=== PATIENT | female | born 1945 | race Caucasian/White ===

== ENCOUNTER 2017-05-28 12:24 | Outpatient (CLI) | payer MEDICARE | END 2017-05-28 12:25 | disposition critical access hospital (66) | LOC: EMS 12:24 | PROVIDERS: ATTEND Surgery | DX: R10.9 Unspecified abdominal pain (principal) | CPT/HCPCS: A0425; A0427 ==

== ENCOUNTER 2017-05-28 12:41 | Emergency (ER) | payer MEDICARE ==
[2017-05-28 13:28] LABS: BASOPHILS % (AUTO) 0.6 %; EOSINOPHILS # (AUTO) 0.1 10^3/uL (0.0-0.7); HCT - HEMATOCRIT 38.3 % (37.0-47.0); HGB - HEMOGLOBIN 13.3 g/dL (12.0-16.0); LYMPHOCYTES # (AUTO) 1.3 10^3/uL (1.5-3.5); LYMPHOCYTES % (AUTO) 23.4 %; MEAN CORPUSCULAR HEMOGLOBIN 30.2 pg (27.0-31.0); MEAN CORPUSCULAR HGB CONC 34.6 g/dL (32.0-36.0); MEAN CORPUSCULAR VOLUME 87.2 fL (81.0-99.0); MEAN PLATELET VOLUME 7.2 fL (7.9-10.8); MONOCYTES # (AUTO) 0.4 10^3/uL (0.0-1.0); MONOCYTES % (AUTO) 6.7 %; NEUTROPHILS # (AUTO) 3.9 10^3/uL (1.5-6.6); NEUTROPHILS % (AUTO) 68.3 %; RED CELL DISTRIBUTION WIDTH 12.8 % (12.0-15.0); UNCORRECTED WHITE BLOOD COUNT 5.8 x10^3/uL; WHITE BLOOD COUNT 5.8 x10^3/uL (4.8-10.8)
[2017-05-28] MEDS ORDERED: ONDANSETRON 4 MG/2 ML VIAL IVP STA (13:30)
[2017-05-28 13:39] LABS: ALBUMIN/GLOBULIN RATIO 1.6 (1.0-2.2); BILIRUBIN,TOTAL 0.5 mg/dL (0.2-1.0); CALCIUM 9.4 mg/dL (8.5-10.3); CREATININE 0.9 mg/dL (0.4-1.0); POTASSIUM 3.5 mmol/L (3.5-5.0); TOTAL PROTEIN 6.3 g/dL (6.7-8.2)
--- NOTE | 2017-05-28 13:40 | ED Physician Documentation ---
History of Present Illness - Stated complaint Stated Complaint: ABD PX - Chief complaint Chief Complaint: Abd Pain - Additonal information Additional information: hx frrom pt 71 f hx int upper abd discomfort and also alt constipation and diarrhea but today severe upper and left sided abd pain black stools for several days nauseated no vomit or diarrhea pshx = hyst Review of Systems Constitutional: denies: Fever, Chills Cardiac: denies: Chest pain / pressure Respiratory: denies: Dyspnea GI: reports: Abdominal Pain, Nausea, Bloody / black stool. denies: Constipation , Diarrhea : denies: Dysuria Musculoskeletal: reports: Back pain (low) Endocrine: denies: Easy bruising / bleeding Immunocompromised: denies: Immunocompromised PD PAST MEDICAL HISTORY - Past Medical History Cardiovascular: Hypertension, High cholesterol - Past Surgical History /[employer]: Hysterectomy - Present Medications Home Medications: Ambulatory Orders Medication Instructions Recorded Confirmed Cholecalciferol (Vitamin D3) 2,000 units PO DAILY 05/28/17 05/28/17 [Vitamin D3] Lidocaine Viscous 2% [Xylocaine 5 ml .ROUTE Q6H PRN #60 ml 05/28/17 Viscous 2%] Omeprazole [PriLOSEC] 10 mg PO DAILY 05/28/17 05/28/17 Sucralfate 1 gm PO ACHS #120 tablet 05/28/17 raNITIdine [Zantac] 150 mg PO DAILY #30 tablet 05/28/17 - Allergies Allergies/Adverse Reactions: Allergies Allergy/AdvReac Type Severity Reaction Status Date / Time morphine Allergy Nausea Verified 05/28/17 12:56 - Social History Does the pt smoke?: No Smoking Status: Former smoker ETOH Use: Wine Does the pt have substance abuse?: No - Immunizations Immunizations are current?: Yes PD ED PE NORMAL - Vitals Vital signs reviewed: Yes - General General: Alert and oriented X 3 - Neck Neck: Supple, no meningeal sign - Cardiac Cardiac: RRR - Respiratory Respiratory: No respiratory distress, Clear bilaterally - Abdomen Abdomen: Soft, Other (mod TTP with vol guarding upper and left abd) - Female Female : Deferred (hyst) - Rectal Rectal: Other (no mass, dark stool, occult blood neg, QC passed) Results - Vitals Vitals: Vital Signs - 24 hr 05/28/17 05/28/17 12:48 13:56 Temperature 36.6 C Heart Rate 65 80 Respiratory 18 16 Rate Blood Pressure 158/93 H O2 Saturation 99 96 Oxygen O2 Source Room air - Labs Labs: Laboratory Tests 05/28/17 05/28/17 05/28/17 13:19 13:19 14:00 WBC 5.8 RBC 4.40 Hgb 13.3 Hct 38.3 MCV 87.2 MCH 30.2 MCHC 34.6 RDW 12.8 Plt Count 281 MPV 7.2 L Neut # 3.9 Lymph # 1.3 L [place] # 0.4 Eos # 0.1 Baso # 0.0 Absolute Nucleated RBC 0.00 Nucleated RBCs 0.0 Sodium 137 Potassium 3.5 Chloride 103 Carbon Dioxide 26 Anion Gap 8.0 BUN 15 Creatinine 0.9 Estimated GFR (MDRD) 62 L Glucose 116 H Calcium 9.4 Total Bilirubin 0.5 AST 23 ALT 24 Alkaline Phosphatase 47 Total Protein 6.3 L Albumin 3.9 Globulin 2.4 Albumin/Globulin Ratio 1.6 Lipase 28 Urine Color YELLOW Urine Clarity CLEAR Urine pH 8.0 H Ur Specific [place] 1.015 Urine Protein NEGATIVE Urine Glucose (UA) NEGATIVE Urine Ketones NEGATIVE Urine Occult Blood NEGATIVE Urine Nitrite NEGATIVE Urine Bilirubin NEGATIVE Urine Urobilinogen 0.2 (NORMAL) Ur Leukocyte Esterase NEGATIVE Ur Microscopic Review NOT INDICATED Urine Culture Comments NOT INDICATED - Rads (name of study) CTA ABD PELVIS Radiology: See rad report PD MEDICAL DECISION MAKING - ED course ED course: nl labs and CTA pain mostly RUQ hx GERd tried pepcid GI cocktail and carafate with good improvement will dc c referral for scope Departure - Departure Disposition: 01 Home, Self Care Clinical Impression: Abdominal pain Qualifiers: Abdominal location: left upper quadrant Qualified Code(s): R10.12 - Left upper quadrant pain Condition: Good Instructions: Abdominal Pain, ED PUD Vs Gastritis Follow-Up: Good Gamez MD [Provider Admit Priv/Credential] - Prescriptions: Sucralfate 1 gm PO ACHS #120 tablet Lidocaine Viscous 2% [Xylocaine Viscous 2%] 5 ml .ROUTE Q6H PRN #60 ml PRN Reason: stomach pain raNITIdine [Zantac] 150 mg PO DAILY #30 tablet Comments: All of the tests today came back fine. The urine showed no infection or blood to suggest a kidney stone The blood work including kidney liver and pancreas function was fine. The CT scan did not show any gallstones or kidney stones, no pancreatitis, no aneurysm or tearing of the aorta or other major blood vessels, no bowel infection/perforation/obstruction, no internal bleeding or free fluid I am not sure what is causing the pain but given the location I suspect gastritis or an ulcer Given the extensive and reassuring workup, I do not think you need surgery or admission or antibiotics. I think it is safe for you to go home on ulcer medications and to follow up with the surgeons for a scope of your stomach You can try the ulcer medications I prescribed. I do not recommend any strong pain killers because I do not want to mask changing or worsening symptoms And please get your blood pressure rechecked - it was high today
[2017-05-28] MEDS: HYDROmorphone 1 MG/ML SYRINGE IVP STA ×2 (13:47→14:02)
[2017-05-28 14:13] LABS: BILIRUBIN,URINE NEGATIVE (NEGATIVE)
[2017-05-28 14:15] LABS: UA CHARGE (STRIP ONLY) YES; UR CULTURE IF IND NOT INDICATED
[2017-05-28] MEDS ORDERED: IOPAMIDOL-300 100 ML VIAL IVP ONE (14:28)
--- NOTE | 2017-05-28 15:24 | CT Preliminary Report ---
Exam: CT Abdomen/Pelvis Angio IMPRESSION: 1. Minimal atherosclerotic plaque. No stenosis. Celiac axis, superior and inferior mesenteric arterie s and renal arteries appear patent. 2. 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 Dilatation of the com mon hepatic artery 9 mm. Normal contrast filling. No dissection. 3. Hysterectomy. 4. An etiology for abdominal pain identified. [facility] SITE ID: [id number]
--- NOTE | 2017-05-28 15:27 | CT Report ---
EXAM: CT ANGIOGRAM ABDOMEN AND PELVIS WITH CONTRAST EXAM DATE: 05/28/2017 02:36 PM. CLINICAL HISTORY: Severe abd pain. Nausea and burning feeling in the lower abdomen since this morning . COMPARISONS: None. TECHNIQUE: Routine helical CT angiogram imaging was performed through the abdomen and pelvis in the a rterial phase. IV contrast: 100 cc [id number]. Enteric contrast: No. Reconstructions: Coronal, sagitt al, and 3D MIP reconstructions. In accordance with CT protocol optimization, one or more of the following dose reduction techniques w ere utilized for this exam: automated exposure control, adjustment of mA and/or KV based on patient s ize, or use of iterative reconstructive technique. FINDINGS: Vasculature: Scattered small foci of calcified plaque are seen within the normal caliber abdominal ao rta. No evidence of aortic or iliac aneurysm. Slight prominence of the right common iliac artery familia uring up to 1.2 cm. There is dilatation of the celiac axis up to 1 cm in diameter. Normal contrast fi lling of the celiac axis, superior and inferior mesenteric arteries as well as the bilateral renal ar teries. Tiny calcified plaque at the right renal artery origin without appreciable narrowing. Tiny fo ci of plaque at the internal iliac arteries. No aortic, iliac or femoral artery stenosis within the f [id number]. Lung Bases: Well-aerated. No pleural or pericardial effusion. Abdominal Solid Organs: The liver, spleen, pancreas, adrenal glands and kidneys demonstrate normal ar terial phase appearance. Gallbladder and bile ducts: Unremarkable. Peritoneal Cavity: Normal. No free fluid, free air, or acute inflammatory process. No bowel obstructi on. Normal appendix. Pelvic Organs: Hysterectomy. Urinary bladder is largely decompressed. No pathologic lymphadenopathy. Bones: Moderate disk height loss and small osteophytes at L4-L5. No acute fracture. No destructive connie ne lesions. Other: None. IMPRESSION: 1. Minimal atherosclerotic plaque. No stenosis. Celiac axis, superior and inferior mesenteric arterie s and renal arteries appear patent. 2. 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 Dilatation of the com mon hepatic artery 9 mm. Normal contrast filling. No dissection. 3. Hysterectomy. 4. An etiology for abdominal pain identified. [facility] Referring Provider Line: [phone] SITE ID: [id number]
[2017-05-28] MEDS ORDERED: LIDOCAINE VISCOUS 2% 15 ML UDC MM STA (15:44)
[2017-05-28] MEDS ORDERED: SUCRALFATE 1 GM/10 ML UDC PO STA (15:44)
[2017-05-28] MEDS ORDERED: FAMOTIDINE 20 MG/50 ML 50 ML IV ONE ×2 (15:44→15:57)
[2017-05-28] MEDS ORDERED: MAG HYDROX/AL HYDROX/SIMETH 30 ML UDC PO STA (15:44)
[2017-05-28] MEDS ORDERED: SUCRALFATE 1 GM/10 ML UDC ONE (15:57)
[2017-05-28] MEDS ORDERED: MAG HYDROX/AL HYDROX/SIMETH 30 ML UDC ONE (15:58)
[2017-05-28] MEDS ORDERED: LIDOCAINE VISCOUS 2% 15 ML UDC MM ONE (15:58)
[2017-05-28 17:24] VITALS: BP 135/84
== END 2017-05-28 17:30 | disposition home or self-care (01) ==
LOC: EDUNIT# → EDBD → ED 12:41 → SUPCPDRO 12:41 → ED 17:30
DX: R10.12 Left upper quadrant pain (principal); I10 Essential (primary) hypertension; Z87.891 Personal history of nicotine dependence
CPT/HCPCS: 36415; 74174; 80053; 81003; 83690; 85025; 96365; 96375; 99284; A9270; J1170; Q9967; 81001; 87086

== ENCOUNTER 2024-01-15 10:51 | Outpatient (CLI) | payer MEDICARE ==
--- NOTE | 2024-01-15 11:29 | XRAY Report ---
PROCEDURE: Hip w/Pelvis 2-3V LT INDICATIONS: HIP PAIN, SCIATICA TECHNIQUE: 2 views of the hip were acquired. COMPARISON: None. FINDINGS: Bones: No fractures or dislocations. Mild degenerative changes of bilateral hips. Degenerative rowell es of the lower lumbar spine. No suspicious bony lesions. Soft tissues: No suspicious soft tissue calcifications or masses. IMPRESSION: No acute bony abnormality. Mild degenerative changes of the bilateral hips. Reviewed by: Dany Ibarra MD on 01/15/2024 11:28 AM PDT Approved by: Dany Ibarra MD on 01/15/2024 11:28 AM PDT Station ID: [id number]
== END 2024-01-15 10:52 | disposition home or self-care (01) ==
LOC: DI 10:51
PROVIDERS: ATTEND Internal Medicine
DX: M54.30 Sciatica, unspecified side (principal); M16.0 Bilateral primary osteoarthritis of hip